=== PATIENT | female | born 1990 | race Caucasian/White ===

== ENCOUNTER 2016-06-07 18:51 | Emergency (ER) | payer OTHER ==
[~2016-06-07] VITALS: Ht 160 cm; Wt 54.5 kg
[2016-06-07 19:27] VITALS: BP 112/69; PULSE 79; RESP 16; O2SAT 100
--- NOTE | 2016-06-07 20:05 | ED.REPORT ---
HPI-Extremity Problem Upper Date of Service Jun 07, 2016 ED Provider: Wiley Perez MD Patient is a 25 year old female with a history of IV heroin abuse and previous suicide attempt that presents with an open wound in the injection site of her right arm. She states that her wound must be seen and addressed before she is allowed into detox, but she is unable to get to wound care in [place] due to an inability to drive. She has been continuing to use heroin although she states that she now only smokes it. The patient has attempted unsuccessfully to quit heroin multiple times, but fails because of "multiple factors" including depression. The patient denies suicidal or homicidal ideation. She has not been seen in any mental health services and states that twelve step meetings have been unhelpful in the past. The patient has been taking Clindamycin for the past 4 days after being seen at [facility] for cellulitis. Her last menstrual period was one month ago. Nursing Notes Stated Complaint: POSSIBLE CELLULITIS IN RIGHT ARM Chief Complaint: Substance Abuse Nursing Notes Reviewed: Yes Allergies: Coded Allergies: lorazepam (Verified Adverse Reaction, Intermediate, hallucinations, ) No Active Prescriptions or Reported Meds General Time Seen by MD: 20:04 Chief Complaint Other (Open wound of right arm) Hx Obtained From: Patient Arrived By: Walk-in Onset Occurred: More than a week ago... Symptom Duration: Since onset Location: : Arm right Quality: Painful Recent Healthcare: No recent hospitalization, Recent doctor visit Similar Sx Previous: Yes Past Medical History Past Medical History Previous suicide attempt Reports: IV Drug use Past Surgical History No history reported Smoking History Unknown if Ever Smoker Social History Drug Use: IV drugs (heroin, presently smoking, recent injection) Ambulatory Status Independent Review of Systems Musculoskeletal: Reports: Extremity pain (Right arm) Complete sys rev & neg: except as marked. Respiratory: Denies: Non-productive cough, Shortness of breath Cardiovascular: Denies: Chest pain GI: Denies: Abdominal pain Psychiatric: Reports: Depression Physical Exam Initial Vital Signs Vital Signs (First) Date Time Temp Pulse Resp B/P Pulse Ox O2 Delivery O2 Flow Rate FiO2 06/07/16 19:27 36.3 79 16 112/69 100 Room Air Initial VS: Reviewed General/Constitutional: Well-developed, Well-nourished Head / Eyes: Atraumatic, Normocephalic Respiratory: Breath sounds normal, No respiratory distress Cardiovascular: Regular rate & rhythm, Heart sounds normal Lower Extremities: Vascular intact, Neuro intact Neurologic: Alert, Oriented Skin: Warm, Dry Triangular 2 cm x 2 cm full thickness wound on the lateral aspect of R elbow with surrounding erythema Wound surface appears clean Smaller ovoid 1 cm x 2 cm wound distal to larger wound Lymphangitic streaking Adenopathy: Positive: Axillary adenopathy R Interpretation & Diagnostics Lab Results Interpretation Test 06/07/16 20:06 Hold Urine Received (Received) Re-Eval/Medical Decision Source of Hx: Old records Re-Evaluation/Progress : Time of Eval: 20:04 Patient Status: Condition unchanged Re-Evaluation/Progress Note: Patient is informed of the plan to discharge during the intial interview and is provided with possible resources for her substance use. She understands and agrees with the plan. All questions have been answered at this time Counseled Regarding: Diagnosis, Lab results, Need for follow-up, When/why to return to ED Discharge & Departure Impression: Primary Impression: Substance abuse Additional Impression: Visit for wound check Disposition: Home Discharge Condition All VS Reviewed: Yes Condition: Stable Additional Instructions: Your right arm wound appears to be healing well at this point. Call Luan Gray to establish primary care, and call to make an appointment with the wound care clinic. Apply gauze moistened with normal saline to the wound daily and then a wrap with a roller program project manager Shon wrap. Change dressing daily, removing the previous days gauze. Follow-up with [facility] for mental health services and [place] [facility], [place] or [place] [facility]. Referrals: [facility] Wound Care [facility] Diego Attestation Portions of this note were transcribed by Kody Georges and Meghana Cat. I, Dr. Perez personally performed the history, physical exam and medical decision- making; I reviewed and confirmed the accuracy of the information in the transcribed note. Signed by: Kody Georges and Diego Avery, 2016 and [id number]. copies to: [facility] ; [facility]; [facility] Wiley Perez MD Jun 07, 2016 20:05 Kody Georges Jun 07, 2016 20:19 MEGHANA CAT Jun 07, 2016 21:39
== END 2016-06-07 20:48 | disposition home or self-care (01) ==
LOC: SED 18:51
DX: F11.20 Opioid dependence, uncomplicated (principal); Z48.00 Encounter for change or removal of nonsurgical wound dressing; W46.0XXA Contact with hypodermic needle, initial encounter; Y92.9 Unspecified place or not applicable; Y93.89 Activity, other specified; Y99.8 Other external cause status; F32.9 Major depressive disorder, single episode, unspecified; Z91.5 Personal history of self-harm; Z88.8 Allergy status to other drugs, medicaments and biological substances

== ENCOUNTER 2016-08-10 16:18 | Emergency (ER) | payer MEDICAID, OTHER ==
[~2016-08-10] VITALS: Ht 160 cm; Wt 54.5 kg
[2016-08-10 16:20] VITALS: BP 122/84; PULSE 98; RESP 16; O2SAT 97
[2016-08-10] MEDS ORDERED: LORazepam 2 mg Tablet PO ONE (17:55)
--- NOTE | 2016-08-10 18:11 | ED.REPORT ---
HPI-Psychiatric Illness Date of Service Aug 10, 2016 ED Provider: Nasim Castaneda MD Pt is a 25 y/o female w/ a hx of IV drug abuse, depression, prior suicide attempt, c/o worsening depression onset 2 years ago. She states she "has no life , doesn't bathe, and can't take care of herself anymore, can't work, doesn't make herself food or eat, and can't sleep due to nightmares". Today, the patient 's mother gave her an ultimatum telling her that she is unwilling to take care of her anymore because she is unable to take care of herself and forced her to come in to the ED for a mental health evaluation. She has also been experiencing "won/gummy bear hallucinations and auditory hallucinations" which have been going on for 2 months. She states she has thoughts of suicide and homicide daily. She states she has "multiple plans of suicide" but "can't do it" because she "isn't good at tieing knots" or her "little brother would find her after coming home from school", she "would have killed herself with a gun a long time ago if she had one". The patient uses IV drugs and last used heroin this morning as well as street Xanax. She used some alcohol yesterday. She has a chronic wound about her distal right upper arm for which she used to see wound care for the past 2 months but hasn't been there recently because she doesn't care about herself. Her last course of antibiotics for this was over 1 month ago. She is willing to be voluntarily admitted. She has no physical symptoms. Nursing Notes Stated Complaint: SUICIDAL, PROGRESSIVE MENTAL HEALTH Chief Complaint: Psychiatric Complaint Nursing Notes Reviewed: Yes Allergies: Coded Allergies: lorazepam (Verified Adverse Reaction, Intermediate, hallucinations, ) No Active Prescriptions or Reported Meds General Time Seen by MD: 16:47 Chief Complaint Depressed Hx Obtained From: Patient Arrived By: Walk-in Onset Occurred: More than a week ago... (>6 months) Symptom Duration: Since onset Progression Since Onset: Constant Severity: Current: No pain currently Severity: Maximum: No pain Recent Healthcare: Recent testing, Previous diagnosis, Prior workup Similar Sx Previous: Yes Risk-Psychiatric Illness Suicide Risk Stratification Suicide Risk Factors - Adult: : Alcohol use: Previous attempt: Substance abuse RF Statements: Risk factors reviewed Past Medical History Past Medical History Previous suicide attempt - overdose IV drug use Depression Necrotic wound right upper arm - followed by wound care Past Surgical History No history reported Smoking History Unknown if Ever Smoker Social History Alcohol Use: "Social" Drug Use: IV drugs, Meth, Xanax Ambulatory Status Independent Review of Systems Constitutional: Denies: Chills, Fever Respiratory: Denies: Non-productive cough, Shortness of breath Cardiovascular: Denies: Chest pain, Dyspnea on exertion GI: Denies: Abdominal pain, Nausea, Vomiting Psychiatric: Reports: Anxiety, Depression, Hallucinations, auditory, Hallucinations, visual, Insomnia, Stress, Suicidal ideation Complete sys rev & neg: except as marked. Physical Exam Constitutional: Well-developed, well-nourished. Not diaphoretic. Head: Normocephalic and atraumatic. Mouth/Throat: Oropharynx is clear and moist. No oropharyngeal exudate. Eyes: EOM are normal. Pupils are equal, round, and reactive to light. Neck: Supple, no tracheal deviation. Cardiovascular: Normal rate, regular rhythm. Equal and intact distal pulses throughout. Pulmonary/Chest: Effort normal and breath sounds normal. No respiratory distress. Abdominal: Soft. No distension. There is no tenderness, rebound, or guarding. Musculoskeletal: Range of motion grossly intact, moving all extremities. Necrotic 5 cm wound to lateral aspect of distal right upper arm. FROM without pain. No surrounding erythema. Abrasions to left forearm from cutting that appear to be healing. Neurological: AOx3. Grossly nonfocal exam. Strength and sensation intact and equal to bilateral upper and lower extremities. Skin: Warm and dry, no rashes or pallor appreciated. Psychiatric: Active SI with plan, active HI. Endorses auditory and visual hallucinations. Slightly tangential. Calm and cooperative. Initial Vital Signs Vital Signs (First) Date Time Temp Pulse Resp B/P Pulse Ox O2 Delivery O2 Flow Rate FiO2 08/10/16 16:20 36.3 98 16 122/84 97 Room Air Initial VS: Reviewed, Vital signs normal Interpretation & Diagnostics Lab Results Interpretation Result Diagram: 08/10/16 1800 08/10/16 1800 Test 08/10/16 17:13 08/10/16 18:00 Hold Urine Received (Received) White Blood Count 6.8th/mm3 (3.8-10.1) Red Blood Count 4.20mil/mm3 (3.90-5.20) Hemoglobin 12.3g/dL (12.0-15.6) Hematocrit 36.8% (35.0-46.0) Mean Corpuscular Volume 87.6fL (81-100) Mean Corpuscular Hemoglobin 29.3pg (27.0-35.0) Mean Corpuscular Hemoglobin Concent 33.4% (32.0-37.0) Red Cell Distribution Width 13.7% (12.3-15.4) Platelet Count 238bil/L (150-400) Neutrophils (%) (Auto) 63.7% (40-74) Lymphocytes (%) (Auto) 27.0% (14-46) Monocytes (%) (Auto) 6.5% (4-12) Eosinophils (%) (Auto) 2.4% (0-5) Basophils (%) (Auto) 0.3% (0-3) Sodium Level 135mEq/L (134-144) Potassium Level 4.0mEq/L (3.5-5.2) Chloride Level 98mEq/L (97-108) Carbon Dioxide Level 22mmol/L (18-29) Blood Urea Nitrogen 9mg/dL (6-20) Creatinine 0.38mg/dL (0.57-1.00) Estimat Glomerular Filtration Rate 301mL/min (>59) Glucose Level 76mg/dL (60-99) Calcium Level 9.5mg/dL (8.5-10.1) Total Bilirubin 0.4mg/dL (0.0-1.2) Aspartate Amino Transf (AST/SGOT) 17U/L (0-50) Alanine Aminotransferase (ALT/SGPT) 12U/L (0-32) Alkaline Phosphatase 64U/L (25-150) Total Protein 7.3g/dL (6.4-8.4) Albumin 4.0g/dL (3.4-5.0) Thyroid Stimulating Hormone (TSH) 7.620uIU/mL (0.450-4.500) Salicylates Level < 3.0ug/mL (30-250) Acetaminophen Level < 15.0ug/mL Rx (10-25) Alcohols < 10mg/dL (0-10) Re-Eval/Medical Decision Med Decision/Clinical Course 25-year-old female presenting to the ED for evaluation of worsening depression, now with suicidal ideations and homicidal ideations with plan. She does admit to last using heroin this morning, as well as Xanax. She does have a necrotic wound to the distal right upper arm that she states is improving she does need wound care, however no reason for inpatient admission for this at this time. Does not appear to involve the joint at its current location. CBC, CMP, APAP, salicylate, alcohol all grossly within normal limits. She does have a mildly elevated TSH at 7.6, however I do not think that this is responsive for her symptoms at this time. Given the concern for her psychiatric status, I think she would benefit from inpatient admission. Given that she has been using drugs , we will need to observe her until sober, at which time our social insurance adviser will attempt to find placement for the patient. Patient signed out to Dr. Mcdonnell at 1130 p.m. Social work to reevaluate the patient in the morning. Source of Hx: Old records Consultation : Consulted With: dairy farmworker Call Returned at: 20:19 Parts Cataloger: Agrees with eval, Agrees with plan Note: Recommends [facility]. 21:30 - [facility] declines to evaluate. WELCOME WAGON HOST/HOSTESS recommends to keep her overnight for sobering and re-evaluate in the morning. Counseled Regarding: Diagnosis, Lab results Discharge & Departure Impression: Primary Impression: Psychosis Psychosis type: unspecified psychosis type Qualified Code: F29 - Unspecified psychosis not due to a substance or known physiological condition Additional Impressions: Chronic wound of extremity Depression Depression Type: unspecified Qualified Code: F32.9 - Major depressive disorder, single episode, unspecified Suicidal ideation Homicidal ideation Discharge Condition All VS Reviewed: Yes Condition: Stable Referrals: [facility] (PCP) Care Transferred to: Dr. Mcdonnell Care Transferred at: 00:00 Diego Attestation Portions of this note were transcribed by Mehdi Palacios. I, Dr. Castaneda, personally performed the history, physical exam and medical decision-making; I reviewed and confirmed the accuracy of the information in the transcribed note. Signed by Diego Mike, 08/10/16 - [id number] copies to: [facility] Nasim Castaneda MD Aug 10, 2016 18:11 MEHDI PALACIOS Aug 10, 2016 18:13
[2016-08-10 18:17] LABS: BASOPHILS % (AUTO) 0.3 % (0-3); EOSINOPHILS % (AUTO) 2.4 % (0-5); MONOCYTES % (AUTO) 6.5 % (4-12); Mean Corpuscular Hemoglobin 29.3 pg (27.0-35.0); Mean Corpuscular Volume 87.6 fL (81-100); NEUTROPHILS % (AUTO) 63.7 % (40-74); Platelet Count 238 bil/L (150-400)
[2016-08-10 22:14] VITALS: BP 100/46; PULSE 74; RESP 20; O2SAT 98
[2016-08-11 03:18] VITALS: BP 99/57; PULSE 61; RESP 16; O2SAT 97
[2016-08-11 09:46] VITALS: BP 128/81; PULSE 87; RESP 16; O2SAT 98
[2016-08-11] MEDS ORDERED: Haloperidol 5 mg/mL Inj IM ONE (13:50)
[2016-08-11 14:12] VITALS: BP 125/84; PULSE 96; RESP 16; O2SAT 98
== END 2016-08-11 16:06 | disposition left against medical advice (07) ==
LOC: SED 16:18
DX: R45.851 Suicidal ideations (principal); F29 Unspecified psychosis not due to a substance or known physiological condition; F11.10 Opioid abuse, uncomplicated; S41.101A Unspecified open wound of right upper arm, initial encounter; X58.XXXA Exposure to other specified factors, initial encounter; Y93.9 Activity, unspecified; Y92.9 Unspecified place or not applicable; Y99.9 Unspecified external cause status; R45.850 Homicidal ideations; Z88.8 Allergy status to other drugs, medicaments and biological substances
CPT/HCPCS: 36415; 80053; 81002; 81025; 82075; 84443; 85025; 96372; 99285; G0480; J1630

== ENCOUNTER 2016-08-11 23:55 | Emergency (ER) | payer MEDICAID ==
[~2016-08-11] VITALS: Ht 160 cm; Wt 54.5 kg
[2016-08-12 00:04] VITALS: BP 109/69; PULSE 91; RESP 18; O2SAT 97
--- NOTE | 2016-08-12 00:09 | ED.REPORT ---
HPI-Psychiatric Illness Date of Service Aug 12, 2016 ED Provider: Danny Mcdonnell MD Patient is a 25 year old female with a hx of previous suicide attempts, and polysubstance abuse including IV drug use who presents to the ED in police custody after eloping from this facility earlier today. Upon her initial presentation a day ago, she was suicidal, homicidal, and reported hallucinations. Upon her presentation today, she states that she eloped because she was tired of waiting to be evaluated and "when you start to get sick, it gets worse". She also states "I thought about slitting my wrists and coming in just to get help. I want to get help. I need my mental health stuff done first otherwise I just can't get clean". She denies using heroin or meth since eloping but reports she did have a beer. She denies suicidal or homicidal ideations at this time. Similar to her previous presentation, she reports she has had prolonged worsening depression. Nursing Notes Stated Complaint: MENTAL HEALTH Chief Complaint: Psychiatric Complaint Nursing Notes Reviewed: Yes Allergies: Coded Allergies: lorazepam (Verified Adverse Reaction, Intermediate, hallucinations, ) No Active Prescriptions or Reported Meds General Time Seen by MD: 00:09 Chief Complaint Depressed Hx Obtained From: Patient, Police Arrived By: Police Onset Occurred: More than a week ago... (>6 months) Progression Since Onset: Gradually worsening Risk-Psychiatric Illness Suicide Risk Stratification Suicide Risk Factors - Adult: : Alcohol use: Previous attempt: Substance abuseNo: Access to firearms RF Statements: Risk factors reviewed Past Medical History Past Medical History Previous suicide attempt - overdose IV drug use Depression Necrotic wound right upper arm - followed by wound care Past Surgical History No history reported Smoking History Current Every Day Smoker Social History Alcohol Use: "Social" Drug Use: IV drugs, Meth, Xanax Ambulatory Status Independent Review of Systems Psychiatric: Reports: Depression, Denies: Homicidal ideation, Suicidal ideation Complete sys rev & neg: except as marked. Physical Exam Initial Vital Signs Vital Signs (First) Date Time Temp Pulse Resp B/P Pulse Ox O2 Delivery O2 Flow Rate FiO2 08/12/16 00:04 36.6 91 18 109/69 97 Room Air Initial VS: Reviewed, Vital signs normal Head / Eyes: Atraumatic, Normocephalic Neck: Full range of motion Respiratory: No respiratory distress General/Constitutional: Awake, Alert, No acute distress Neurologic: Oriented X3, Speech NL Psychiatric: Not suicidal, Not homicidal ENT: Airway patent Skin: Warm, Dry IVDA martin Upper Extremity / MS: No deformity IVDA martin Interpretation & Diagnostics Lab Results Interpretation Test 08/12/16 00:42 Hold Urine Received (Received) Lab Results Interpretation: Urine tox: Opiate and Benzo positive Re-Eval/Medical Decision Med Decision/Clinical Course 25-year-old female presented here initially overtly psychotic with some suicidal and homicidal ideation. She also acknowledges visual hallucinations. She was here more or less voluntarily, but was seen by mental health and no disposition arrived at. At some point this evening she eloped, and was picked up by the police and brought back here. At that point, repeat drug screen was negative except for the known opiates and benzodiazepines. Still no evidence of meth use. Alcohol was zero. She was seen by the DCR and is not deemed detain able. I agree with that assessment. She has an urgent visit arranged at [facility] with combined mental health and CD counseling planned. Discharge now in stable condition without active suicidal or homicidal ideation. She has chronic daily suicidal ideation, but is sigrid for safety. She is going to her usual residence, where her mother, who is a drug user in remission, and her boyfriend, who is likewise intermission and not actively using, will support her. Provided with address and phone number for follow-up visit today. Re-Evaluation/Progress : Time of Eval: 04:46 Re-Evaluation/Progress Note: Discussed plan for discharge with close follow up. Patient understands and agrees with plan. All questions addressed at this time. Counseled Regarding: Diagnosis, Need for follow-up, When/why to return to ED Discharge & Departure Impression: Primary Impression: Substance abuse Additional Impressions: Depression Depression Type: unspecified Qualified Code: F32.9 - Major depressive disorder, single episode, unspecified Anxiety Suicidal ideation Homicidal ideation )( Condition at Discharge: No suicidal ideation, No homicidal ideation Disposition: Home Discharge Condition All VS Reviewed: Yes Condition: Stable Additional Instructions: You have an urgent appointment at [facility] at 3 PM today. Go to [address] [place] [address]. The phone number there is [phone]. Return if you feel unsafe, if you feel unable to contain your suicidal thoughts. Follow-up with your doctor, and with the chemical dependency counselors. Referrals: [facility] (PCP) Scribe Attestation Portions of this note were transcribed by Smith Michele. I, Dr. Mcdonnell personally performed the history, physical exam and medical decision-making; I reviewed and confirmed the accuracy of the information in the transcribed note. Signed by: Smith Michele 08/12/2016, [id number] copies to: [facility] aJmil Mcdonnell MD Aug 12, 2016 00:09 SMITH MICHELE Aug 12, 2016 00:29
[2016-08-12] MEDS: Buprenorphine 2 mg SL Tablet SL ONE ×2 (00:45→01:05)
[2016-08-12 04:53] VITALS: BP 111/68; PULSE 85; RESP 20; O2SAT 99
[2016-08-12 04:56] VITALS: BP 111/68; PULSE 85; RESP 18; O2SAT 99
== END 2016-08-12 04:56 | disposition home or self-care (01) ==
LOC: SED 23:55
DX: F11.20 Opioid dependence, uncomplicated (principal); F19.29 Other psychoactive substance dependence with unspecified psychoactive substance-induced disorder; F41.8 Other specified anxiety disorders; R45.850 Homicidal ideations; R45.851 Suicidal ideations; F17.200 Nicotine dependence, unspecified, uncomplicated; Z88.8 Allergy status to other drugs, medicaments and biological substances